=== PATIENT | female | born 1985 | race American Indian/Alaskan Native ===

== ENCOUNTER 2016-11-11 13:29 | Emergency (ER) | payer SELFPAY ==
[2016-11-11 14:10] VITALS: BP 101/66
[2016-11-11] MEDS ORDERED: TORADOL IM ONE (15:51)
[2016-11-11] MEDS ORDERED: ROXICODONE PO ONE (15:52)
--- NOTE | 2016-11-11 15:57 | Emergency Department Report ---
ED Abdominal Pain HPI - General Chief Complaint: OB/Uterine Contractions Stated Complaint: ABDOMINAL PAIN Time Seen by Provider: 11/11/16 15:07 Source: EMS Mode of arrival: Stretcher Limitations: No Limitations - History of Present Illness Initial Comments: Patient is a 28 year old female with no past medical history presenting with abdominal pain. Patient is currently in the middle of a miscarriage and taking Misopristol, last dose was at 11 AM this morning, but patient reports intense cramping and no relief with the oxycodone. Patient's assess oxycodone was approximately at noon. She is passing blood clots and having vaginal bleeding over denies any increase in bleeding. Otherwise no fevers, chills, headache, nausea, vomiting, chest pain, shortness of breath, extremity pain, travel, or sick contacts. - Related Data Previous Rx's Medication Instructions Recorded Last Taken Type Naproxen [Naprosyn] 500 mg PO BID PRN #14 tablet 11/11/16 Unknown Rx Allergies Allergy/AdvReac Type Severity Reaction Status Date / Time No Known Allergies Allergy Unverified 11/11/16 13:58 ED Review of Systems ROS: Stated complaint: ABDOMINAL PAIN Other details as noted in HPI Comment: All other systems reviewed and negative ED Past Medical Hx - Past Medical History Previous Medical History?: No - Surgical History Past Surgical History?: Yes Additional Surgical History: tubal - Social History Smoking Status: Never Smoker Substance Use Type: None - Medications Home Medications: Home Medications Medication Instructions Recorded Confirmed Last Taken Type Naproxen [Naprosyn] 500 mg PO BID PRN #14 tablet 11/11/16 Unknown Rx ED Physical Exam - General Limitations: No Limitations General appearance: alert, in no apparent distress - Head Head exam: Present: atraumatic, normocephalic - Eye Eye exam: Present: normal appearance - ENT ENT exam: Present: mucous membranes moist - Neck Neck exam: Present: normal inspection - Respiratory Respiratory exam: Present: normal lung sounds bilaterally. Absent: respiratory distress - Cardiovascular Cardiovascular Exam: Present: regular rate, normal rhythm. Absent: systolic murmur, diastolic murmur, rubs, gallop - GI/Abdominal GI/Abdominal exam: Present: soft, tenderness (mild suprapubic tenderness), normal bowel sounds. Absent: distended, guarding, rebound, rigid - Extremities Exam Extremities exam: Present: normal inspection - Back Exam Back exam: Present: normal inspection - Neurological Exam Neurological exam: Present: alert, oriented X3 - Psychiatric Psychiatric exam: Present: normal affect, normal mood - Skin Skin exam: Present: warm, dry, intact, normal color. Absent: rash ED Course Vital Signs 11/11/16 13:58 Temperature 98.6 F Pulse Rate 60 Respiratory 18 Rate Blood Pressure 101/66 O2 Sat by Pulse 98 Oximetry ED Medical Decision Making - Medical Decision Making I discussed with the patient at bedside it is normal to have intense cramping with the miscarriage. Patient is aware her pain will never be 0. I did tell the patient that her cramping should subside within next day. I will give the patient Toradol 60 mg IM here, an additional tab of oxycodone 5mg, and give her a prescription for Naprosyn. Patient still has a prescription of oxycodone at home. Patient instructed to follow up with her [employer]. Critical care attestation.: If time is entered above; I have spent that time in minutes in the direct care of this critically ill patient, excluding procedure time. ED Disposition Clinical Impression: Abdominal pain, Miscarriage Disposition: [id number] TO HOME OR SELFCARE Is pt being admited?: No Condition: Stable Instructions: Abdominal Pain (ED), Spontaneous Miscarriage (ED) Prescriptions: Naproxen [Naprosyn] 500 mg PO BID PRN #14 tablet PRN Reason: Pain Referrals: PRIMARY CARE, [Primary Care Provider] - 3-5 Days
[2016-11-11] MEDS ORDERED: TORADOL ONE (16:02)
[2016-11-11] MEDS ORDERED: ROXICODONE ONE (16:03)
== END 2016-11-11 16:32 | disposition home or self-care (01) ==
LOC: ED 13:29
DX: O03.9 Complete or unspecified spontaneous abortion without complication (principal); Z98.51 Tubal ligation status; Z3A.00 Weeks of gestation of pregnancy not specified
CPT/HCPCS: 96372; 99283; J1885